=== PATIENT | female | born 1970 | race Caucasian/White ===

== ENCOUNTER 2018-02-18 22:58 | Emergency (ER) | payer OTHER, SELFPAY ==
[2018-02-18 23:05] VITALS: BP 158/109; PULSE 65; RESP 14; TEMP 36.9; O2SAT 98; BMI 43.9
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
[2018-02-18] MEDS: SILVER SULFADIAZINE 1% CREAM 25 GM 1 APPLIC TOP (23:56)
[2018-02-18] MEDS: HYDROCODONE/ACET 5/325 TABLET 1 TAB PO (23:56)
[2018-02-18] MEDS: HYDROCODONE/ACET 5/325 PREPACK 1 BOTTLE MISC (23:56)
[2018-02-19 00:34] VITALS: BP 135/91; PULSE 63; RESP 16; O2SAT 98
== END 2018-02-19 00:37 | disposition home or self-care (01) ==
PROVIDERS: Emergency Provider Emergency Medicine
DX: T23.202A Burn of second degree of left hand, unspecified site, initial encounter (principal); X15.3XXA Contact with hot saucepan or skillet, initial encounter
CPT/HCPCS: 99282

== ENCOUNTER → 2022-03-07 09:51 | Outpatient (CLI) | payer OTHER, SELFPAY ==
--- NOTE | 2022-03-07 10:04 | DI.RAD.S_ITS ---
PROCEDURE: XR KNEE RT 3V INDICATIONS: RT KNEE PAIN TECHNIQUE: 3 views of the knee were acquired. COMPARISON: None. FINDINGS: Bones: No fractures or dislocations. No suspicious bony lesions. Moderate medial patellofemoral and minimal lateral compartment narrowing. No erosions. Minimal periarticular osteophytes. Soft tissues: Mild joint effusion. No suspicious soft tissue calcifications. IMPRESSION: Arthritic change most notably in the medial compartment. Dictated by: Christiane Edwards M.D. on 03/07/2022 at 11:02 Approved by: Christiane Edwards M.D. on 03/07/2022 at 11:04
== END ==
PROVIDERS: PCP Orthopaedic Surgery; Visit Provider Orthopaedic Surgery
DX: M25.561 Pain in right knee (principal)
CPT/HCPCS: 73562

== ENCOUNTER 2024-07-02 13:56 | Emergency (ER) | payer OTHER, SELFPAY ==
[2024-07-02 14:02] VITALS: BP 123/74; PULSE 72; RESP 12; TEMP 36.8; O2SAT 96; BMI 38.0
[2024-07-02 14:22] LABS: Add Manual Diff / Slide Review NO; Basophils Absolute Auto 100 /uL (0-100); Basophils Percent Auto 1.1 % (0-2); Eosinophils Absolute Auto 200 /uL (0-450); Eosinophils Percent Auto 2.7 % (2-4); Hematocrit 44.5 % (36-46); Lymphocytes Absolute Auto 2200 /uL (1100-4500); Lymphocytes Percent Auto 30.2 % (25-40); Mean Corpuscular HGB Conc 33.7 % (30-36); Mean Corpuscular Hemoglobin 30.6 PG (26-34); Mean Corpuscular Volume 90.7 fL (80-100); Monocytes Absolute Auto 400 /uL (0-900); Monocytes Percent Auto 5.4 % (3-14); Neutrophils Absolute Auto 4300 /uL (1500-7000); Neutrophils Percent Auto 60.6 % (50-75); Platelet Count 349 X10^3/uL (150-400); Red Blood Cell Count 4.91 X10^6/uL (4.0-5.2); Red Cell Distribution Width 13.7 % (11.6-14.8); White Blood Cell Count 7.1 X10^3/uL (4.5-11.0)
--- NOTE | 2024-07-02 14:26 | EKG_ITS ---
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
[2024-07-02 14:34] LABS: Alanine Aminotransferase 20 IU/L (<35); Albumin 4.2 g/dL (3.5-5.0); Albumin Globulin Ratio 1.4 (1.0-2.8); Alkaline Phosphatase 77 U/L (38-126); Aspartate Aminotransferase 22 IU/L (14-36); BUN Creatinine Ratio 18.7 (6-22); Bilirubin Total 0.7 mg/dL (0.2-1.3); Blood Urea Nitrogen 14 mg/dL (7-17); Calcium 8.8 mg/dL (8.4-10.2); Carbon Dioxide 23 mmol/L (22-32); Chloride 105 mmol/L (98-107); Estimated Glomerular Filt Rate > 60 mL/min (>60); Globulin 2.9 g/dL (1.7-4.1); Glucose 110 mg/dL (70-100); HEMOLYSIS < 15 (0-50); Lipase 101 U/L (23-300); Potassium 3.5 mmol/L (3.4-5.1); Sodium 136 mmol/L (137-145); Total Protein 7.1 g/dL (6.3-8.2)
--- NOTE | 2024-07-02 15:09 | ED.GENADULT ---
HPI - General Adult General Chief complaint: Syncope Stated complaint: LOC Time Seen by Provider: 07/02/24 14:02 Source: patient Mode of arrival: Family Vehicle History of Present Illness HPI narrative: 53-year-old female who is here for evaluation of a syncopal episode that occurred earlier today while at [employer]. She states she has been fairly immobile over the past couple days because of a knee injury. She states that she was standing leaning on her crutches when she states that she felt like she was getting lightheaded. Had the tunnel vision. Her was standing next to her. She did sit down in a chair but did not fall. She actually did pass out. Was only unconscious for very short period of time. Was not postictal. No injuries from the event. Prior to passing out did not have chest pain shortness of breath palpitations. No headache. She was passed out a couple times over her life but has never really had an evaluation of the symptoms. She currently is completely asymptomatic. Related Data Home Medications Medication Instructions Recorded Confirmed cetirizine 10 mg tablet 10 mg PO DAILY 02/18/18 05/03/21 Previous Rx's Medication Instructions Recorded methylprednisolone 4 mg tablets in See Rx Instructions PO PER PKG DIR 05/03/21 a dose pack #21 ea Allergies Allergy/AdvReac Type Severity Reaction Status Date / Time No Known Allergies Allergy Uncoded 07/02/24 14:06 Review of Systems Review of Systems ROS Unobtainable: All systems reviewed & are unremarkable except as noted in HPI and below Patient History Medical History Dysfunction of both eustachian tubes Social History Smoking Status: Never smoker Smoking Status: Never smoker alcohol intake frequency: holidays/special occasions only Substance Use Type: does not use Exam Initial Vital Signs Initial Vital Signs: Vital Signs Temperature 98.3 F 07/02/24 14:02 Pulse Rate 72 07/02/24 14:02 Respiratory Rate 12 07/02/24 14:02 Blood Pressure 123/74 07/02/24 14:02 Pulse Oximetry 96 07/02/24 14:02 Oxygen Delivery Method Room Air 07/02/24 14:02 Const General: comfortable and No ill appearing HENKS Head: normal to inspection and normocephalic Resp Effort & Inspection: normal respiratory effort Auscultation: clear to auscultation bilaterally Cardio Rate: regular rate Rhythm: regular rhythm GI Inspection: normal to inspection and non-distended Skin General: no rashes or lesions noted Neuro General: patient alert, patient awake, patient oriented x3 and moves all extremities Extrem General: capillary refill normal Course Orders Ordered: ED Orders 07/02/24 14:03 EKG-12 Lead Stat 07/02/24 14:16 Complete Blood Count AUTO DIFF Stat Comprehensive Metabolic Panel Stat Lipase Stat Vital Signs Vital signs: Vital Signs - 8 hr 07/02/24 14:02 Temperature 98.3 F Pulse Rate 72 Respiratory Rate 12 Blood Pressure 123/74 Pulse Oximetry 96 Oxygen Delivery Method Room Air Medical Decision Making Lab Data Lab results reviewed: Yes I reviewed the patient's lab results. 07/02/24 14:16 07/02/24 14:16 Labs: Lab Results 07/02/24 Range/Units 14:16 WBC 7.1 (4.5-11.0) X10^3/uL RBC 4.91 (4.0-5.2) X10^6/uL Hgb 15.0 (12.0-16.0) g/dL Hct 44.5 (36-46) % MCV 90.7 (80-100) fL MCH 30.6 (26-34) PG MCHC 33.7 (30-36) % RDW 13.7 (11.6-14.8) % Plt Count 349 (150-400) X10^3/uL Neut % (Auto) 60.6 (50-75) % Lymph % (Auto) 30.2 (25-40) % [place] % (Auto) 5.4 (3-14) % Eos % (Auto) 2.7 (2-4) % Baso % (Auto) 1.1 (0-2) % Neut # (Auto) 4300 (9696-8844) /uL Lymph # (Auto) 2200 (0757-2513) /uL [place] # (Auto) 400 (0-900) /uL Eos # (Auto) 200 (0-450) /uL Baso # (Auto) 100 (0-100) /uL Sodium 136 L (137-145) mmol/L Potassium 3.5 (3.4-5.1) mmol/L Chloride 105 (98-107) mmol/L Carbon Dioxide 23 (22-32) mmol/L BUN 14 (7-17) mg/dL Creatinine 0.75 (0.52-1.04) mg/dL Estimated GFR > 60 (>60) mL/min BUN/Creatinine Ratio 18.7 (6-22) Glucose 110 H (70-100) mg/dL Calcium 8.8 (8.4-10.2) mg/dL Total Bilirubin 0.7 (0.2-1.3) mg/dL AST 22 (14-36) IU/L ALT 20 (<35) IU/L Alkaline Phosphatase 77 (38-126) U/L Total Protein 7.1 (6.3-8.2) g/dL Albumin 4.2 (3.5-5.0) g/dL Globulin 2.9 (1.7-4.1) g/dL Albumin/Globulin Ratio 1.4 (1.0-2.8) Lipase 101 (23-300) U/L Point of Care Testing Glucose POC 104 Point of care testing: Point of Care Testing Glucose POC 104 ECG Data Attestation: I personally reviewed and interpreted this ECG as follows: Interpretation: Sinus rhythm Ventricular rate is 72 Normal axis Normal QRS Normal QTC No ST T wave changes MDM Narrative Medical decision making narrative: Patient did have a syncopal episode. I have low suspicion that this is seizure. Labs unremarkable. Low risk per the [place] syncope rule. She was now completely asymptomatic. We did discuss the possibility of a transient arrhythmia. Advised that if her symptoms continue that she may need to talk with her primary doctor about the indications for Holter monitor. Labs are unremarkable. Not hypoglycemic. Will discharge patient home for follow-up with primary doctor. She was given return precautions. She expressed understanding and agreement. Discharge Plan Departure Patient Disposition: Home Clinical Impression: Syncope Instructions: DI for Syncope in Adults (Fainting) Activity Restrictions/Additional Instructions: Recommend that you continue to take all of your medications as directed. Contact your primary care doctor for a follow-up. Return to the emergency department for new or worsening symptoms. Prescriptions: No Action methylprednisolone 4 mg tablets,dose pack See Rx Instructions PO PER PKG DIR Qty: 21 0RF Rx Instructions: PO PER PKG DIR cetirizine 10 mg Tablet 10 mg PO DAILY Referrals: Casimiro Soni MD [Primary Care Provider] - Stand Alone Forms: Patient Portal/API
[2024-07-02 15:32] VITALS: BP 148/93; PULSE 65; RESP 10; O2SAT 98
== END 2024-07-02 15:40 | disposition home or self-care (01) ==
PROVIDERS: Emergency Provider Emergency Medicine; PCP Family Medicine
DX: R55 Syncope and collapse (principal)
CPT/HCPCS: 36415; 80053; 82962; 83690; 85025; 93005; 99283; 99284